=== PATIENT | female | born 1940 | race Caucasian/White ===

== ENCOUNTER 2023-03-15 13:16 | Observation (INO) | payer MEDICARE ==
[~2023-03-15] VITALS: Ht 160 cm; Wt 68.5 kg
[2023-03-15] MEDS ORDERED: XARE20TA PO (13:37)
[2023-03-15] MEDS ORDERED: SPIR-10 PO (13:37)
[2023-03-15] MEDS ORDERED: METO1TAB32 PO (13:37)
[2023-03-15] MEDS ORDERED: ENTR1TAB7 PO (13:37)
[2023-03-15 15:10] LABS: BASO # 0.1 10^3/uL (0.0-0.2); BASO % 1.1 % (0.0-1.0); EOS # 0.1 10^3/uL (0.0-0.5); EOS % 1.4 % (0.0-3.0); HEMATOCRIT 45.6 % (36.0-47.0); HEMOGLOBIN 15.6 g/dl (12.0-15.5); LYMPH # 0.8 10^3/uL (1.5-5.0); LYMPH % 12.9 % (24.0-44.0); MEAN CORPUSCULAR HEMOGLOBIN 32.8 pg (27.0-33.0); MEAN CORPUSCULAR HGB CONC 34.2 g/dl (32.0-36.5); MEAN CORPUSCULAR VOLUME 95.8 fl (80.0-96.0); MONO # 0.6 10^3/uL (0.0-0.8); NEUTROPHILS # 4.9 10^3/uL (1.5-8.5); NEUTROPHILS % 75.4 % (36.0-66.0); PLATELET COUNT, AUTOMATED 267 10^3/uL (150-450); RED BLOOD COUNT 4.76 10^6/uL (4.00-5.40); WHITE BLOOD COUNT 6.5 10^3/uL (4.0-10.0)
[2023-03-15 15:23] LABS: INR 0.91; PROTHROMBIN TIME 12.4 SECONDS (12.5-14.5)
[2023-03-15 15:42] LABS: CK-MB VALUE MASS 1.3 NG/ML (<3.6)
[2023-03-15 15:44] LABS: BLOOD UREA NITROGEN 13 MG/DL (9-23); CALCIUM LEVEL 8.5 MG/DL (8.3-10.6); CARBON DIOXIDE LEVEL 28 MMOL/L (20-31); CHLORIDE LEVEL 100 MMOL/L (98-107); CREATININE FOR GFR 0.52 MG/DL (0.55-1.30); GLOMERULAR FILTRATION RATE > 60.0 (>32); GLUCOSE, FASTING 96 MG/DL (74-106); POTASSIUM SERUM 4.1 MMOL/L (3.5-5.1); SODIUM LEVEL 135 MMOL/L (136-145)
[2023-03-15 15:47] LABS: THYROID STIMULATING HORMONE 0.672 uIU/ML (0.55-4.78)
[2023-03-15 15:48] LABS: CPK CREATINE PHOSPHOKINASE 56 U/L (34-145); MB/CK RELATIVE INDEX 2.32 (< OR =4)
[2023-03-15] MEDS ORDERED: MED REC IN PROGRESS XX SCH (17:35)
[2023-03-15] MEDS: RIVAROXABAN 20MG TAB (XARELTO) PO SCH (18:00)
[2023-03-15 19:32] LABS: RSV AMPLIFICATION NEGATIVE (NEGATIVE)
[2023-03-15] MEDS ORDERED: CYAN1000VL IM (20:03)
[2023-03-15] MEDS ORDERED: [UNRECOGNIZED DRUG - OTHER] PO (20:03)
[2023-03-15] MEDS ORDERED: LEVOTHYROXINE PO (20:03)
[2023-03-15] MEDS ORDERED: UBIQ200C4 PO (20:03)
[2023-03-15] MEDS ORDERED: [UNRECOGNIZED DRUG - OTHER] PO (20:03)
[2023-03-15] MEDS ORDERED: TESTPOW5 TOP (20:03)
[2023-03-15] MEDS ORDERED: VITA100093 PO (20:03)
[2023-03-15] MEDS ORDERED: MUPI2OI TOP (20:03)
[2023-03-15] MEDS ORDERED: RA M10TA PO (20:03)
[2023-03-15] MEDS ORDERED: ESTROGEN TOP (20:03)
[2023-03-15] MEDS ORDERED: QUET1TAB17 PO (20:03)
[2023-03-15] MEDS ORDERED: AMBI5TAB PO (20:03)
[2023-03-15] MEDS ORDERED: [UNRECOGNIZED DRUG - CODE] PO (20:03)
[2023-03-15] MEDS ORDERED: OMEG10002 PO (20:03)
[2023-03-15] MEDS ORDERED: [UNRECOGNIZED DRUG - CODE] PO (20:03)
[2023-03-15] MEDS ORDERED: PROGEST PO (20:03)
[2023-03-15] MEDS ORDERED: LIOTHYRONINE PO (20:03)
[2023-03-15] MEDS ORDERED: IODINE PO (20:03)
[2023-03-15] MEDS ORDERED: PANTOTHENIC ACID PO (20:03)
[2023-03-15] MEDS ORDERED: VIT1CAPS22 PO (20:03)
[2023-03-15] MEDS ORDERED: HOME MED LIST COMPLETE! XX SCH (20:05)
[2023-03-15] MEDS: ENTRESTO 49-51MG TABLET (SACUBITRIL/VALSARTAN) PO SCH (21:00)
[2023-03-15] MEDS ORDERED: QUEtiapine FUMARATE 12.5 MG HALF-TAB PO SCH (21:00)
[2023-03-15] MEDS ORDERED: QUEtiapine FUMARATE 25 MG TAB PO ONE (21:00)
[2023-03-15 22:56] VITALS: BP 141/82; TEMP 97.6; O2SAT 96
[2023-03-15] MEDS ORDERED: PILL CUTTER 1 EACH XX PRN (23:15)
[2023-03-15] MEDS: zolPIDEM TARTRATE 5 MG TAB PO SCH (23:19)
[2023-03-16] MEDS ORDERED: QUEtiapine FUMARATE 25 MG TAB PO ONE
[2023-03-16 06:12] VITALS: BP 121/58; TEMP 97; O2SAT 96
[2023-03-16 06:12] LABS: HEMATOCRIT 42.5 % (36.0-47.0); HEMOGLOBIN 14.7 g/dl (12.0-15.5); MEAN CORPUSCULAR HEMOGLOBIN 32.5 pg (27.0-33.0); MEAN CORPUSCULAR HGB CONC 34.6 g/dl (32.0-36.5); MEAN CORPUSCULAR VOLUME 93.8 fl (80.0-96.0); PLATELET COUNT, AUTOMATED 242 10^3/uL (150-450); RED BLOOD COUNT 4.53 10^6/uL (4.00-5.40)
[2023-03-16 06:41] LABS: BLOOD UREA NITROGEN 11 MG/DL (9-23); CALCIUM LEVEL 8.5 MG/DL (8.3-10.6); CARBON DIOXIDE LEVEL 26 MMOL/L (20-31); CHLORIDE LEVEL 104 MMOL/L (98-107); GLOMERULAR FILTRATION RATE > 60.0 (>32); GLUCOSE, FASTING 90 MG/DL (74-106); SODIUM LEVEL 136 MMOL/L (136-145)
[2023-03-16 07:35] VITALS: BP 119/59
[2023-03-16] MEDS: METOPROLOL SUCC *XL* 25MG TAB (TopROL *XL*) PO SCH (09:00)
[2023-03-16] MEDS: SPIRONOLACTONE 25 MG TAB PO SCH (09:00)
[2023-03-16] MEDS: ENTRESTO 49-51MG TABLET (SACUBITRIL/VALSARTAN) PO SCH ×2 (09:00→18:39)
[2023-03-16 12:00] VITALS: BP 120/61; TEMP 96.7; O2SAT 98
[2023-03-16 17:57] VITALS: BP 113/57; TEMP 97; O2SAT 98
[2023-03-16] MEDS: RIVAROXABAN 20MG TAB (XARELTO) PO SCH (18:39)
[2023-03-16 20:19] VITALS: BP 118/63; TEMP 97; O2SAT 97
[2023-03-16] MEDS ORDERED: QUEtiapine FUMARATE 12.5 MG HALF-TAB PO SCH (21:00)
[2023-03-16] MEDS: OMEGA-3 1000MG CAPSULE PO SCH (21:51)
[2023-03-16] MEDS: OCUVITE 1 TAB PO SCH (21:51)
[2023-03-16] MEDS: zolPIDEM TARTRATE 5 MG TAB PO SCH (21:51)
[2023-03-16] MEDS ORDERED: RAMELTEON 8 MG TAB (ROZEREM) PO ONE (23:00)
[2023-03-17 05:53] VITALS: BP 112/63; TEMP 96.9; O2SAT 95
[2023-03-17 07:37] VITALS: BP 134/68; TEMP 97.1; O2SAT 96
[2023-03-17 08:42] VITALS: BP 134/68
[2023-03-17] MEDS: OMEGA-3 1000MG CAPSULE PO SCH (08:42)
[2023-03-17] MEDS: SPIRONOLACTONE 25 MG TAB PO SCH (08:42)
[2023-03-17] MEDS: METOPROLOL SUCC *XL* 25MG TAB (TopROL *XL*) PO SCH (08:42)
[2023-03-17] MEDS: OCUVITE 1 TAB PO SCH (08:42)
[2023-03-17] MEDS ORDERED: [UNRECOGNIZED DRUG - OTHER] PO SCH (09:00)
[2023-03-17] MEDS ORDERED: ENTRESTO 49-51MG TABLET (SACUBITRIL/VALSARTAN) PO SCH (09:00)
[2023-03-17] MEDS ORDERED: IODINE PO SCH (09:00)
[2023-03-17] MEDS ORDERED: CO-ENZYME Q10 50 MG CAP PO SCH (09:00)
[2023-03-17] MEDS ORDERED: ONCOPLEX PO SCH (09:00)
[2023-03-17] MEDS ORDERED: VITAMIN D 1,000 INTERNATIONAL UNITS TABLET PO SCH (09:00)
[2023-03-17] MEDS ORDERED: PANTOTHENIC ACID PO SCH (18:00)
== END 2023-03-17 10:40 | disposition home or self-care (01) ==
LOC: M ED 13:16 → M ED INP 13:17 → M PCU 22:54
PROVIDERS: ADMIT Internal Medicine Nephrology; ATTEND General Practice
DX: T82.190A Other mechanical complication of cardiac electrode, initial encounter (principal); I48.91 Unspecified atrial fibrillation; I50.20 Unspecified systolic (congestive) heart failure; Z85.3 Personal history of malignant neoplasm of breast; F33.1 Major depressive disorder, recurrent, moderate; H35.30 Unspecified macular degeneration; E03.9 Hypothyroidism, unspecified; G47.00 Insomnia, unspecified; R32 Unspecified urinary incontinence; Z92.3 Personal history of irradiation; Z79.01 Long term (current) use of anticoagulants; Z79.899 Other long term (current) drug therapy
CPT/HCPCS: 36415; 71045; 80048; 82550; 82553; 83880; 84443; 84484; 85025; 85027; 85610; 85730; 87631; 93005; 93041; 94760; 97161; 99285; G0378